=== PATIENT | male | born 1990 | race Caucasian/White ===

== ENCOUNTER 2017-07-24 19:22 | Emergency (ER) | payer OTHER ==
[~2017-07-24] VITALS: Ht 182.9 cm; Wt 90.3 kg
== END 2017-07-24 20:14 | disposition home or self-care (01) ==
LOC: ED 19:22
PROC: 0HQ1XZZ Repair Face Skin, External Approach (ICD-10-PCS; principal; 2017-07-24)
DX: S01.111A Laceration without foreign body of right eyelid and periocular area, initial encounter (principal); Z87.891 Personal history of nicotine dependence; Y04.8XXA Assault by other bodily force, initial encounter
CPT/HCPCS: 12011; 99282